=== PATIENT | male | born 1970 | race Caucasian/White ===

== ENCOUNTER 2019-07-15 21:14 | Emergency (ER) | payer OTHER ==
[~2019-07-15] VITALS: Ht 175.3 cm; Wt 92.1 kg
[2019-07-15 21:18] VITALS: Ht 175.3 cm; Wt 92.1 kg
[2019-07-15 22:18] VITALS: BP 137/93
== END 2019-07-15 22:18 | disposition home or self-care (01) ==
LOC: ED 21:14
DX: S01.511A Laceration without foreign body of lip, initial encounter (principal); W21.07XA Struck by softball, initial encounter; Y93.64 Activity, baseball; Y92.89 Other specified places as the place of occurrence of the external cause; Y99.8 Other external cause status
CPT/HCPCS: J1885